=== PATIENT | female | born 1995 | race Asian ===

== ENCOUNTER 2017-02-17 10:23 | Emergency (ER) | payer SELFPAY ==
--- NOTE | 2017-02-17 10:50 | EDPHY ---
H & P Stated Complaint: chest pain Time Seen by Provider: 02/17/17 10:37 HPI/ROS: CHIEF COMPLAINT: Chest pain since yesterday HISTORY OF PRESENT ILLNESS: 21-year-old female generally healthy, nonsmoker, no drug use, primarily Nepalese speaking, assistance of a Nepalese speaking friend at bedside, complaining of chest pain described as constant, dull for the past 24 hours. She notes similar 9 months ago when she was living in [facility] with no medical evaluation at that time. She moved to [place] 4 weeks ago. Chest pain is nonexertional. No dyspnea or chest pain with exertion. No radiation pain. No syncope or near syncope. No nausea or vomiting. No diaphoresis. PRIMARY CARE PROVIDER:none REVIEW OF SYSTEMS: A ten point review of systems was performed and is negative with the exception of the items mentioned in the HPI PAST MEDICAL & SURGICAL HISTORY: no coagulopathy SOCIAL HISTORY: nonsmoker. No illicit drug use. No cocaine use. FAMILY HISTORY: no family history of premature coronary artery disease, coagulopathy . PHYSICAL EXAM (Prior to examination, patient consented to physical exam, hands were washed and my usual and customary physical exam procedures followed) 1) GENERAL: Well-developed, well-nourished, alert and oriented. Appears to be in no acute distress. 2) HEAD: Normocephalic, atraumatic 3) HEENT: Pupils equal, round, reactive to light bilaterally. Sclera anicteric. Nasopharynx, oropharynx, clear, no lesions. 4) NECK: Full range of motion, no meningeal signs. No carotid bruit 5) LUNGS: Clear auscultation bilaterally, no wheezes, no rhonchi, no retractions. 6) HEART: Regular rate and rhythm, no murmur, no heave, no gallop. Chest wall is tender to palpation right sternal border. 7) ABDOMEN: No guarding, no rebound, no focal tenderness, negative McBurney's, negative Jauregui's, negative Rovsing's, negative peritoneal sign, 8) MUSCULOSKELETAL: Moving all extremities, no focal areas of tenderness, no obvious trauma. No peripheral edema or discoloration. Negative Homans no palpable cord 9) BACK: No CVA tenderness, no midline vertebral tenderness, no fluctuance, no step-off, no obvious trauma, no visual or palpable abnormality. 10) SKIN: No rash, no petechiae. 11) Psychiatric: Patient is oriented X 3, there is no agitation. DIFFERENTIAL DIAGNOSIS: In no particular order, including but not limited to myocardial ischemia, pulmonary embolus, chest wall pain, pleural inflammation and pulmonary infectious causes. - Personal History Current Tetanus Diphtheria and Acellular Pertussis (TDAP): Unsure - Medical/Surgical History Hx Asthma: No Hx Chronic Respiratory Disease: No Hx Diabetes: No Hx Cardiac Disease: No Hx Renal Disease: No Hx Cirrhosis: No Hx Alcoholism: No Hx HIV/AIDS: No Hx Splenectomy or Spleen Trauma: No Other PMH: none - Social History Smoking Status: Never smoked Constitutional: Initial Vital Signs Temperature (C) 36.8 C 02/17/17 10:26 Heart Rate 77 02/17/17 10:26 Respiratory Rate 16 02/17/17 10:26 Blood Pressure 117/73 02/17/17 10:26 O2 Sat (%) 95 02/17/17 10:26 O2 Delivery Mode Room Air Allergies/Adverse Reactions: No Known Allergies Allergy (Unverified 02/17/17 10:26) Home Medications: Medication Instructions Recorded Ibuprofen [Motrin (*)] 600 mg PO Q6 #15 tab 02/17/17 Pantoprazole Sodium [Protonix 40mg 40 mg PO DAILY #30 tab 02/17/17 (RX)] Medical Decision Making - Diagnostics Imaging Results: Imaging Impressions Chest X-Ray 02/17/17 10:47 Impression: Clear lungs. No pneumonia or acute process. ED Course/Re-evaluation: This patient was re-evaluated with serial examinations and discussed with secondary supervising physician Dr. Solo in the ER. She is low risk for cardiac neck, pulmonary, coagulopathic disorder/etiology with no family history of similar, no listed drug use, nonsmoker.. Doubt PE. Doubt NV. Doubt aortic dissection. She is tender to palpation right sternal wall and we discussed possibility of acute costochondritis. Also informs me that she eats a very spicy diet, regularly eating spicy chilies on their own. We discussed possibility of esophageal reflux. I recommended against spicy food and provided my usual customary dietary precautions instructions. I will start her on a proton pump inhibitor, also recommended ibuprofen for treatment of costochondritis. Do not think that further diagnostic studies are indicated at this time. The patient feels comfortable being discharged home. All questions and concerns were addressed e by myself - Data Points Laboratory Results: Laboratory Results 02/17/17 10:58 02/17/17 10:58 02/17/17 02/17/17 02/17/17 10:58 10:58 10:58 WBC RBC Hgb Hct MCV MCH MCHC RDW Plt Count MPV Neut % (Auto) Lymph % (Auto) Amelia % (Auto) Eos % (Auto) Baso % (Auto) Nucleat RBC Rel Count Absolute Neuts (auto) Absolute Lymphs (auto) Absolute Monos (auto) Absolute Eos (auto) Absolute Basos (auto) Absolute Nucleated RBC Immature Gran % Immature Gran # D-Dimer 0.38 ug/mLFEU ug/mLFEU (0.00-0.50) Sodium 143 mEq/L mEq/L (134-144) Potassium 3.8 mEq/L mEq/L (3.5-5.2) Chloride 108 mEq/L mEq/L (97-110) Carbon Dioxide 21 mEq/l L mEq/l (22-31) Anion Gap 14 mEq/L mEq/L (8-16) BUN 7 mg/dL mg/dL (7-23) Creatinine 0.6 mg/dL mg/dL (0.6-1.0) Estimated GFR > 60 Glucose 89 mg/dL mg/dL (70-100) Calcium 9.9 mg/dL mg/dL (8.5-10.4) Total Bilirubin 1.2 mg/dL mg/dL (0.1-1.4) Conjugated Bilirubin 0.2 mg/dL mg/dL (0.0-0.5) Unconjugated Bilirubin 1.0 mg/dL mg/dL (0.0-1.1) AST 19 IU/L IU/L (14-46) ALT 26 IU/L IU/L (9-52) Alkaline Phosphatase 110 IU/L IU/L (38-126) Troponin I Total Protein 7.6 g/dL g/dL (6.3-8.2) Albumin 4.4 g/dL g/dL (3.5-5.0) Lipase 156 IU/L IU/L (23-300) Beta HCG, Qual NEGATIVE 02/17/17 02/17/17 10:58 10:55 WBC 7.37 10^3/uL 10^3/uL (3.80-9.50) RBC 4.52 10^6/uL 10^6/uL (4.18-5.33) Hgb 13.3 g/dL g/dL (12.6-16.3) Hct 39.3 % % (38.0-47.0) MCV 86.9 fL fL (81.5-99.8) MCH 29.4 pg pg (27.9-34.1) MCHC 33.8 g/dL g/dL (32.4-36.7) RDW 13.2 % % (11.5-15.2) Plt Count 242 10^3/uL 10^3/uL (150-400) MPV 11.0 fL fL (8.7-11.7) Neut % (Auto) 70.3 % % (39.3-74.2) Lymph % (Auto) 18.7 % % (15.0-45.0) Amelia % (Auto) 6.2 % % (4.5-13.0) Eos % (Auto) 3.7 % % (0.6-7.6) Baso % (Auto) 0.8 % % (0.3-1.7) Nucleat RBC Rel Count 0.0 % % (0.0-0.2) Absolute Neuts (auto) 5.18 10^3/uL 10^3/uL (1.70-6.50) Absolute Lymphs (auto) 1.38 10^3/uL 10^3/uL (1.00-3.00) Absolute Monos (auto) 0.46 10^3/uL 10^3/uL (0.30-0.80) Absolute Eos (auto) 0.27 10^3/uL 10^3/uL (0.03-0.40) Absolute Basos (auto) 0.06 10^3/uL 10^3/uL (0.02-0.10) Absolute Nucleated RBC 0.00 10^3/uL 10^3/uL (0-0.01) Immature Gran % 0.3 % % (0.0-1.1) Immature Gran # 0.02 10^3/uL 10^3/uL (0.00-0.10) D-Dimer Sodium Potassium Chloride Carbon Dioxide Anion Gap BUN Creatinine Estimated GFR Glucose Calcium Total Bilirubin Conjugated Bilirubin Unconjugated Bilirubin AST ALT Alkaline Phosphatase Troponin I < 0.012 ng/mL ng/mL (0.000-0.034) Total Protein Albumin Lipase Beta HCG, Qual Medications Given: Discontinued Medications Al Hydroxide/Mg Hydroxide (Maalox Susp) 30 ml PO ONCE ONE Stop: 02/17/17 12:15 Last Admin: 02/17/17 12:18 Dose: 30 ml Hyoscyamine Sulfate (Levsin, Hyomax-Sl) 0.25 mg PO ONCE ONE Stop: 02/17/17 12:15 Last Admin: 02/17/17 12:18 Dose: 0.25 mg Lidocaine (Lidocaine 2% Viscous) 15 ml PO ONCE ONE Stop: 02/17/17 12:15 Last Admin: 02/17/17 12:18 Dose: 15 ml Departure - Departure Disposition: Home, Routine, Self-Care Clinical Impression: Chest wall pain Condition: Good Instructions: Chest Wall Pain (ED) Additional Instructions: Seek medical attention if you develop new or worsening chest pain, if you develop new or worsening shortness of breath, or any other symptoms that concern you. Do not eat spicy food. Referrals: [facility],. [Clinic] - As per Instructions Prescriptions: Ibuprofen [Motrin (*)] 600 mg PO Q6 #15 tab Pantoprazole Sodium [Protonix 40mg (RX)] 40 mg PO DAILY #30 tab
--- NOTE | 2017-02-17 10:53 | CPEKG ---
Heart Rate: 61 RR Interval: 984 P-R Interval: 152 QRSD Interval: 82 QT Interval: 392 QTC Interval: 395 P [place]: 69 QRS [place]: 57 T Wave [place]: 37 EKG Severity - NORMAL ECG - EKG Impression: SINUS RHYTHM EKG Impression: Agree with above. Electronically Signed By: Man Victor 18-Feb-2017 11:08:39
[2017-02-17 11:08] LABS: % IMMATURE GRANULYOCYTES 0.3 % (0.0-1.1); ABSOLUTE IMMATURE GRANULOCYTES 0.02 10^3/uL (0.00-0.10); ADD DIFF? NO; ADD MORPH? NO; ADD SCAN? NO; ATYPICAL LYMPHOCYTE FLAG 10 (0-99); FRAGMENT RBC FLAG 0 (0-99); HEMATOCRIT 39.3 % (38.0-47.0); HEMOGLOBIN 13.3 g/dL (12.6-16.3); LEFT SHIFT FLG 0 (0-99); LIPEMIA HEMOLYSIS FLAG 90 (0-99); MEAN CELL HEMOGLOBIN 29.4 pg (27.9-34.1); MEAN CELL HEMOGLOBIN CONCENTR. 33.8 g/dL (32.4-36.7); MEAN CELL VOLUME 86.9 fL (81.5-99.8); PLATELET CLUMPS FLAG 20 (0-99); PLATELET COUNT 242 10^3/uL (150-400); RED BLOOD CELL COUNT 4.52 10^6/uL (4.18-5.33); RED CELL DISTRIBUTION WIDTH 13.2 % (11.5-15.2)
[2017-02-17 11:30] LABS: ALANINE AMINOTRANSFERASE 26 IU/L (9-52); ALBUMIN 4.4 g/dL (3.5-5.0); ALKALINE PHOSPHATASE 110 IU/L (38-126); ANION GAP 14 mEq/L (8-16); ASPARTATE AMINOTRANSFERASE 19 IU/L (14-46); BILIRUBIN,TOTAL 1.2 mg/dL (0.1-1.4); BILIRUBIN-CONJUGATED 0.2 mg/dL (0.0-0.5); CALCIUM 9.9 mg/dL (8.5-10.4); CARBON DIOXIDE 21 mEq/l (22-31); CHLORIDE 108 mEq/L (97-110); CREATININE 0.6 mg/dL (0.6-1.0); GLOMERULAR FILTRATION RATE > 60; GLUCOSE 89 mg/dL (70-100); POTASSIUM 3.8 mEq/L (3.5-5.2); SODIUM 143 mEq/L (134-144); TOTAL PROTEIN 7.6 g/dL (6.3-8.2)
[2017-02-17] MEDS ORDERED: HYOSCYAMINE SULFATE 0.125 MG TAB PO ONE (12:14)
[2017-02-17] MEDS ORDERED: LIDOCAINE 2% VISCOUS 15 ML UDCUP PO ONE (12:14)
[2017-02-17] MEDS ORDERED: MAG HYDROX/AL HYDROX/SIMETH 30 ML UDCUP PO ONE (12:14)
[2017-02-17 13:44] VITALS: BP 126/81; PULSE 68; RESP 18; TEMP 98.4; O2SAT 96
== END 2017-02-17 13:44 | disposition home or self-care (01) ==
DX: R07.89 Other chest pain (principal)